=== PATIENT | female | born 1970 | race American Indian/Alaskan Native ===

== ENCOUNTER 2018-09-15 16:08 | Emergency (ER) | payer BC ==
--- NOTE | 2018-09-15 16:18 | Emergency Department Report ---
Blank Doc - Documentation Documentation: This is a 48-year-old female that presents with acute new onset of headache with HTN. This initial assessment/diagnostic orders/clinical plan/treatment(s) is/are subject to change based on patient's health status, clinical progression and re- assessment by fellow clinical providers in the ED. Further treatment and workup at subsequent clinical providers discretion. Patient/guardians urged not to elope from the ED as their condition may be serious if not clinically assessed and managed. Initial orders include: 1- Patient sent to [facility] for further evaluation and treatment 2- CT head
--- NOTE | 2018-09-15 17:07 | Cat Scan Report ---
PROCEDURE: CT HEAD/BRAIN WO CON TECHNIQUE: Computerized tomography of the head was performed without contrast material. CT DOSE LENGTH PRODUCT: 1046 mGycm HISTORY: headache with htn COMPARISONS: None . FINDINGS: Skull and scalp: Normal . Paranasal sinuses: Normal . Ventricles and subarachnoid spaces: Normal . Cerebrum: No evidence of hemorrhage, acute infarction or mass . Cerebellum and brainstem: No evidence of hemorrhage, acute infarction or mass . IMPRESSION: Normal Examination . This document is electronically signed by Saji Flor MD., September 15 2018 05:05:57 PM ET
[2018-09-15] MEDS ORDERED: CATAPRES PO ONE (18:30)
--- NOTE | 2018-09-15 18:33 | Emergency Department Report ---
HPI - General Chief Complaint: Headache Time Seen by Provider: 09/15/18 16:17 - HPI HPI: Patient is a very pleasant 48-year-old who comes to the ER with a complaint of headache. She had gastric bypass surgery in 2013 and since then her blood pressure is being controlled. However, today she stated she developed a headache like she used to get when her blood pressure was elevated. So she came to the ER for evaluation. One time she was on lisinopril HCTZ but her gastric bypass doctor took her off telling her diet will control her blood pressure. She is recently and had an insurance change and has not followed up with her primary care doctor. She has no other medical problems and is currently taking no home medications. She has lost over 100 pounds since 2013 when she had her gastric bypass surgery ED Past Medical Hx - Past Medical History Previous Medical History?: Yes Hx Hypertension: Yes - Surgical History Past Surgical History?: Yes Additional Surgical History: Gastric bypass - Social History Smoking Status: Never Smoker Substance Use Type: Alcohol - Medications Home Medications: Home Medications Medication Instructions Recorded Confirmed Last Taken Type Lisinopril/Hydrochlorothiazide 1 each PO DAILY #30 tablet 09/15/18 Unknown Rx [Zestoretic 10-12.5 mg Tablet] ED Review of Systems ROS: Stated complaint: HBP Other details as noted in HPI Comment: All other systems reviewed and negative Physical Exam - Physical Exam Vital Signs: Vital Signs 09/15/18 16:17 Temperature 98.6 F Pulse Rate 82 Respiratory 16 Rate Blood Pressure 188/121 O2 Sat by Pulse 100 Oximetry Physical Exam: WDWN patient in NAD VS per RN flow sheet Alert and oriented to person, place and time. S1-S2. No S3 or S4. No systolic or diastolic murmur. No JVD. No pitting edema. Lungs clear to auscultation bilaterally anteriorly and posteriorly. Abdomen soft nontender bowel sounds x4 Moves all extremities well. Mood and affect appropriate. ED Course Vital Signs 09/15/18 16:17 Temperature 98.6 F Pulse Rate 82 Respiratory 16 Rate Blood Pressure 188/121 O2 Sat by Pulse 100 Oximetry ED Medical Decision Making - Radiology Data Radiology results: report reviewed, image reviewed - Medical Decision Making neuro intact ct no acute process medicated in ER discussed meds and her bp will start on low dose lisinopril/hctz referrals to outpt PMD Vital Signs 09/15/18 09/15/18 16:17 18:43 Temperature 98.6 F Pulse Rate 82 66 Respiratory 16 Rate Blood Pressure 188/121 174/101 O2 Sat by Pulse 100 Oximetry Critical care attestation.: If time is entered above; I have spent that time in minutes in the direct care of this critically ill patient, excluding procedure time. ED Disposition Clinical Impression: HTN (hypertension) Disposition: - TO HOME OR SELFCARE Is pt being admited?: No Does the pt Need Aspirin: No Condition: Stable Instructions: Hypertension (ED) Additional Instructions: DIET TOLERATED MEDS ORDERED TODAY IN ER FOLLOW INSTRUCTIONS ON THE BOTTLE FOLLOW UP PCP WITHIN 48 HOURS TO ENSURE YOU ARE GETTING BETTER ACTIVITY TOLERATED MOTRIN OR TYLENOL FOR PAIN OR FEVER RETURN TO THE ER FOR WORSENING SYMPTOMS NOT RELIEVED BY YOUR MEDICATIONS. Prescriptions: Lisinopril/Hydrochlorothiazide [Zestoretic 10-12.5 mg Tablet] 1 each PO DAILY #30 tablet Referrals: JERMAINE ALMENDAREZ MD [Referring] - 3-5 Days TRELL MARTÍNEZ MD [Staff Physician] - 3-5 Days [facility] [Outside] - 3-5 Days Forms: Work/School Release Form(ED) Time of Disposition: 18:31
[2018-09-15 19:12] VITALS: BP 164/99
== END 2018-09-15 19:00 | disposition home or self-care (01) ==
LOC: ED 16:08
DX: I10 Essential (primary) hypertension (principal)
CPT/HCPCS: 70450; 99283